=== PATIENT | female | born 1990 | race Hispanic/Latino ===

== ENCOUNTER 2021-04-20 21:03 | Emergency (ER) | payer OTHER ==
[~2021-04-20] VITALS: Ht 157.5 cm; Wt 81.6 kg
[2021-04-20 21:34] VITALS: BP 122/78
[2021-04-20 21:42] LABS: APPEARANCE,URINE Clear (CLEAR); BILIRUBIN,URINE Negative (NEGATIVE); COLOR,URINE Yellow (YELLOW); GLUCOSE, URINE (UA) Negative (NEGATIVE); KETONES,URINE Negative (NEGATIVE); LEUKOCYTE ESTERASE ,URINE Negative (NEGATIVE); NITRATE,URINE Negative (NEGATIVE); OCCULT BLOOD,URINE Negative (NEGATIVE); PH,URINE 6.5 (5.0-8.0); PROTEIN,URINE Negative (NEGATIVE)
[2021-04-20 21:43] LABS: HCG,QUAL RESULT NEGATIVE (NEGATIVE)
[2021-04-20] MEDS ORDERED: KETOROLAC 60 MG VIAL (30MG/ML) IM ONE (22:15)
[2021-04-20] MEDS ORDERED: CYCLOBENZAPRINE HCL 10 MG TABLET PO ONE (22:15)
[2021-04-20] MEDS ORDERED: NAPR-1180 PO (22:47)
[2021-04-20] MEDS ORDERED: CYCL10 PO (22:47)
[2021-04-20 22:59] VITALS: BP 116/71
== END 2021-04-20 23:07 | disposition home or self-care (01) ==
LOC: EDH 21:03
DX: S39.012A Strain of muscle, fascia and tendon of lower back, initial encounter (principal); Z79.899 Other long term (current) drug therapy; X58.XXXA Exposure to other specified factors, initial encounter; Y93.89 Activity, other specified; Y92.89 Other specified places as the place of occurrence of the external cause; Y99.8 Other external cause status
CPT/HCPCS: 72100; 81003; 81025; 96372; 99284; J1885

== ENCOUNTER 2022-06-30 17:48 | Emergency (ER) | payer MEDICAID, OTHER ==
[~2022-06-30] VITALS: Ht 157.5 cm; Wt 49.9 kg
[~2022-06-30 17:48] MED LIST: CYCL10TA16 PO; NAPR-1180 PO
[2022-06-30 18:01] VITALS: BP 125/86
[2022-06-30] MEDS ORDERED: PRED50TA2 PO (18:42)
[2022-06-30] MEDS ORDERED: DIPH25TA22 PO (18:42)
== END 2022-06-30 18:56 | disposition home or self-care (01) ==
LOC: EDH 17:48
DX: T78.49XA Other allergy, initial encounter (principal); Z79.1 Long term (current) use of non-steroidal anti-inflammatories (NSAID); Z79.52 Long term (current) use of systemic steroids; X58.XXXA Exposure to other specified factors, initial encounter

== ENCOUNTER 2023-11-27 00:21 | Emergency (ER) | payer OTHER ==
[~2023-11-27] VITALS: Ht 157.5 cm; Wt 86.2 kg
[~2023-11-27 00:21] MED LIST changes: +DIPH25TA22 PO; +PRED50TA2 PO
[2023-11-27 00:24] VITALS: RESP 20
[2023-11-27 00:54] LABS: RAPID GROUP A STREP negative (NEGATIVE)
[2023-11-27 00:58] LABS: SARS-CoV-2, RNA, NAAT NEGATIVE SARS CoV-2 (NEGATIVE)
[2023-11-27 01:03] LABS: INFLUENZA TYPE A Negative For Type A (NEGATIVE); INFLUENZA TYPE B Negative For Type B (NEGATIVE)
[2023-11-27] MEDS ORDERED: GUAI5LIQ13 PO (02:55)
[2023-11-27 03:36] VITALS: BP 133/74; PULSE 88
== END 2023-11-27 03:37 | disposition home or self-care (01) ==
LOC: EDH 00:21
DX: J06.9 Acute upper respiratory infection, unspecified (principal); Z20.822 Contact with and (suspected) exposure to COVID-19; Z79.899 Other long term (current) drug therapy; Z98.890 Other specified postprocedural states
CPT/HCPCS: 87635; 87804; 87880

== ENCOUNTER 2024-07-04 20:16 | Emergency (ER) | payer SELFPAY ==
[~2024-07-04] VITALS: Ht 157.5 cm; Wt 86.2 kg
[~2024-07-04 20:16] MED LIST changes: +GUAI5LIQ13 PO
[2024-07-04 22:46] LABS: RAPID GROUP A STREP negative (NEGATIVE)
[2024-07-04 22:51] LABS: SARS-CoV-2, RNA, NAAT NEGATIVE SARS CoV-2 (NEGATIVE)
[2024-07-04 22:56] LABS: INFLUENZA TYPE A Negative For Type A (NEGATIVE); INFLUENZA TYPE B Negative For Type B (NEGATIVE)
[2024-07-04] MEDS: 0.9%NACL 1000ML 1,000 ML IV ONE (23:06)
[2024-07-04] MEDS: acetaMINOPHEN 500 MG TABLET PO ONE (23:06)
[2024-07-04 23:35] LABS: BASOPHILS # (AUTO) 0.04 K/uL (0.00-0.20); BASOPHILS % (AUTO) 0.4 % (0.0-5.0); EOSINOPHILS # (AUTO) 0.03 K/uL (0.00-0.70); EOSINOPHILS % (AUTO) 0.3 % (0.0-8.0); HEMATOCRIT 34.6 % (36-48); IMMATURE GRANULOCYTE ABSOLUTE 0.04 K/uL (0-1); LYMPHOCYTES # (AUTO) 1.7 K/uL (1.0-4.8); LYMPHOCYTES % (AUTO) 18.3 % (21.0-51.0); MEAN CORPUSCULAR HEMOGLOBIN 25.1 pg (27.0-33.0); MEAN CORPUSCULAR HGB CONC 31.8 g/dL (32.0-36.0); MONOCYTES # (AUTO) 0.5 K/uL (0.1-1.0); MONOCYTES % (AUTO) 4.9 % (3.0-13.0); NEUTROPHILS # (AUTO) 7.2 K/uL (1.8-7.7); NEUTROPHILS % (AUTO) 75.7 % (40.0-77.0); PLATELET COUNT (AUTO) 400 K/uL (130-400); RED BLOOD CELL COUNT(AUTO) 4.38 MIL/uL (4.00-5.50); RED CELL DISTRIBUTION WIDTH 14.2 % (11.0-15.5); WHITE BLOOD COUNT (AUTO) 9.5 K/uL (4.8-10.8)
[2024-07-04 23:43] LABS: CREATININE 0.7 mg/dL (0.5-1.0); POTASSIUM 4.4 mmol/L (3.5-5.1)
[2024-07-04 23:58] LABS: APPEARANCE,URINE CLOUDY (CLEAR); BILIRUBIN,URINE NEGATIVE (NEGATIVE); COLOR,URINE COLORLESS (YELLOW); GLUCOSE, URINE (UA) NEGATIVE (NEGATIVE); KETONES,URINE NEGATIVE (NEGATIVE); LEUKOCYTE ESTERASE ,URINE 500 Leu/uL (NEGATIVE); NITRATE,URINE NEGATIVE (NEGATIVE); OCCULT BLOOD,URINE LARGE (NEGATIVE); PROTEIN,URINE 20 mg/dL (NEGATIVE); UROBILINOGEN,URINE 0.2 mg/dL (0.2-1.0)
[2024-07-05] VITALS: BP 134/78; PULSE 70; RESP 20; TEMP 98.8; O2SAT 98
[2024-07-05 00:01] LABS: BACTERIA,URINE FEW /HPF (None Seen); MUCUS,URINE RARE LPF (None Seen); SQUAMOUS EPITHELIAL CELL,UR MANY /HPF (0-2)
[2024-07-05] MEDS ORDERED: CEPH500B PO (00:09)
== END 2024-07-05 00:30 | disposition home or self-care (01) ==
LOC: EDH 20:16
DX: N39.0 Urinary tract infection, site not specified (principal); Z20.822 Contact with and (suspected) exposure to COVID-19; Z79.899 Other long term (current) drug therapy; Z98.890 Other specified postprocedural states
CPT/HCPCS: 99283; 87635; 80048; 85025; 87086; 87880; 87804 ×2; 81001; 36415; J7030

== ENCOUNTER 2025-05-17 23:57 | Emergency (ER) | payer SELFPAY ==
[~2025-05-17] VITALS: Ht 154.9 cm; Wt 2.3 kg
[~2025-05-17 23:57] MED LIST changes: +CEPH500B PO; +DICL20GE TP; -GUAI5LIQ13 PO; +GUAI5SYR10 PO
--- NOTE | 2025-05-18 00:43 | ERN ---
General Chief Complaint: Headache Stated Complaint: C/O HEADACHE, NAUSEA, WEAKNESS Time Seen by MD: 00:04 History of Present Illness Initial Comments 34-year-old female with a history of headaches associated with nausea and vomiting for the last 2-3 weeks comes in because her pain is impossible to control. She is to take Excedrin but stopped because she is planning on donating one of her kidneys to her and needs to avoid nephrotoxic medications. She states no past medical history no meds no allergies. She was planning on seeing a neurologist to help with her headaches but does not have the money to pay for the appointments. She does give a history of prodrome symptoms and so it is possible she truly has migraine headaches. Timing/Duration: 1 week, constant Allergies: Coded Allergies: No Known Drug Allergies (Unverified Allergy, Unknown, 04/20/21) Home Meds Active Scripts Diclofenac Sodium (Voltaren Arthritis Pain) 1 % Gel..gram., 4 GM TP TID for 7 Days, #1 TUBE Prov:KRIS JEONG MD 01/18/25 Cephalexin Monohydrate (Keflex) 500 Mg Cap, 1 CAP PO BID for 10 Days, #20 CAP 0 Refills Prov:KRIS JEONG MD 01/18/25 Cephalexin Monohydrate (Keflex) 500 Mg Cap, 500 MG PO BID for 7 Days, #14 CAP Prov:KRIS JEONG MD 07/05/24 Guaifenesin/Dextromethorphan (Guaifenesin-Dm 100-10 mg/5 ml) 100 Mg-10 Mg/5 Ml Liquid, 5 ML PO Q4HPRN PRN for COUGH, #100 ML Prov:SAI LLANOS MD 11/27/23 Diphenhydramine HCl (Diphenhydramine HCl) 25 Mg Tablet, 50 MG PO every 6 hours PRN for allergy symptoms for 5 Days, #30 TAB Prov:REILLY MONTENEGRO NP 06/30/22 Prednisone (Prednisone) 50 Mg Tablet, 50 MG PO DAILYBKFST for allergic reaction for 5 Days, #5 TAB Prov:REILLY MONTENEGRO NP 06/30/22 Cyclobenzaprine HCl (Flexeril) 10 Mg Tab, 10 MG PO BID, #30 TAB Prov:ROSCOE TORO 04/20/21 Naproxen (Naprosyn) 500 Mg Tablet, 500 MG PO BIDPC, #60 TAB Prov:ROSCOE TORO 04/20/21 Past Medical History Past Medical History: Anemia, Migraines Past Surgical History: Family History Family History: Negative Social History Social History: Negative Constitutional: (-) chills, (-) diaphoresis, (-) fever, (-) malaise, (-) weakness, (-) other documentation EENTM: (-) eye pain, (-) blurred vision, (-) tearing, (-) double vision, (-) ear pain, (-) ear discharge, (-) nose pain, (-) nose congestion, (-) throat pain, (-) Throat swelling, (-) mouth pain, (-) tooth pain, (-) mouth swelling, (-) other documentation Respiratory: (-) cough, (-) orthopnea, (-) short of breath, (-) stridor, (-) wheezing, (-) other documentation Cardiovascular: (-) chest pain, (-) edema, (-) palpitations, (-) syncope, (-) dyspnea on exertion, (-) other documentation Gastrointestinal/Abdominal: (+) nausea, (+) vomiting Genitourinary: (-) vaginal discharge, (-) vaginal bleeding, (-) dysuria, (-) frequency, (-) hematuria, (-) pain, (-) other documentation Musculoskeletal: (-) Neck pain, (-) back pain, (-) Flank Pain, (-) joint pain, (-) joint swelling, (-) muscle pain, (-) muscle stiffness, (-) gout, (-) other documentation Skin: (-) laceration, (-) contusion, (-) abrasion, (-) abscess, (-) rash, (-) change in color, (-) change in hair, (-) change in nails, (-) diaphoresis, (-) dryness, (-) other documentation Neuro: (+) headache Hematologic/Lymphatic: (+) anemia Physical Exam General Appearance: (+) mild distress Orientation: (+) alert, (+) oriented x 3 Head/Face Trauma: No Eye: bilateral eye normal inspection, bilateral eye PERRL, bilateral eye EOMI Ear, Nose, Throat: (+) hearing grossly normal, (+) normal ENT inspection, (+) moist mucous membraine Neck: (+) normal inspection, (+) supple, (+) full range of motion Respiratory: (+) chest non-tender, (+) lungs clear, (+) well ventilated Heart: (+) regular, (+) no gallop Vascular: (+) no edema, (+) normal peripheral pulse Gastrointestinal: (+) soft, (+) non-tender, (+) no organomegaly, (+) bowel sound present Results Laboratory and Microbiology Lab and Micro Result Laboratory Tests Test 05/18/25 00:24 White Blood Count 7.3 K/uL (4.8-10.8) Red Blood Count 4.57 MIL/uL (4.00-5.50) Hemoglobin 11.9 g/dL (12.0-16.0) L Hematocrit 36.8 % (36-48) Mean Corpuscular Volume 80.5 fL (79-99) Mean Corpuscular Hemoglobin 26.0 pg (27.0-33.0) L Mean Corpuscular Hemoglobin Concent 32.3 g/dL (32.0-36.0) Red Cell Distribution Width 14.6 % (11.0-15.5) Platelet Count 504 K/uL (130-400) H Mean Platelet Volume 11.0 fL (7.5-10.5) H Immature Granulocyte % (Auto) 0.3 % (0-1) Neutrophils (%) (Auto) 69.3 % (40.0-77.0) Lymphocytes (%) (Auto) 24.3 % (21.0-51.0) Monocytes (%) (Auto) 4.3 % (3.0-13.0) Eosinophils (%) (Auto) 1.4 % (0.0-8.0) Basophils (%) (Auto) 0.4 % (0.0-5.0) Neutrophils # (Auto) 5.1 K/uL (1.8-7.7) Lymphocytes # (Auto) 1.8 K/uL (1.0-4.8) Monocytes # (Auto) 0.3 K/uL (0.1-1.0) Eosinophils # (Auto) 0.10 K/uL (0.00-0.70) Basophils # (Auto) 0.03 K/uL (0.00-0.20) Absolute Immature Granulocyte (auto 0.02 K/uL (0-1) Nucleated Red Blood Cells 0.0 % (0.0-0.19) Sodium Level 138 mmol/L (136-145) Potassium Level 4.9 mmol/L (3.5-5.1) Chloride Level 104 mmol/L (101-111) Carbon Dioxide Level 26 mmol/L (21-32) Blood Urea Nitrogen 7 mg/dL (7-18) Creatinine 0.6 mg/dL (0.5-1.0) Glomerular Filtration Rate Calc 121 mL/min (>90) Random Glucose 94 mg/dL (70-105) Total Calcium 9.0 mg/dL (8.5-10.1) Serum Test, Qualitative NEGATIVE (NEGATIVE) MDM MDM: Differential diagnosis: Migraines, dehydration, muscle strain, tension h eadaches Rationale: Tests considered and ordered secondary to shared decision making include: Previous outside records reviewed: Old ER visits. Risk of complication and/or morbidity or mortality of patient management: None Medications-Per medication reconciliation Need for hospitalization: Patient does meet criteria for hospitalization. Need for emergency major/minor surgery: No There are no social concerns with this patient. Prescription drug management Prescriptions will include symptomatic care Patient's prior external medical records from other ER visits were reviewed by me as indicated. Prior testing and results from previous visits were reviewed. Prior tests were taken into account with medical decision making and resource utilization, independent historian/historians were used to obtain complete medical history. I independently interpreted the test that were performed, results were reviewed by me and considered findings on radiology if ordered. I will order the usual labs as well as bolused her some fluid and give her some nor flex as well as some sumatriptan. Patient was given sumatriptan as well as Flexeril neither one of those medications helped the patient's headache that much. Once she finished the L of fluids her headache went away. I will discharge her home with some sumatriptan as that should not interfere with her ability to serve as a kidney donor. ED Course Orders Procedure Category Date Status Time Cbc With Differential LAB 05/18/25 Complete 00:09 Basic Metabolic Panel LAB 05/18/25 Complete 00:09 Testing, LAB 05/18/25 Complete Serum Hcg 00:09 Lactated Ringers PHA 05/18/25 Complete 1000ml (Lactated 00:38 Sumatriptan Succinate PHA 05/18/25 Complete (Imitrex) 01:00 Orphenadrine Citrate PHA 05/18/25 Complete (Norflex) 01:00 Cyclobenzaprine Hcl PHA 05/18/25 Complete (Cyclobenzaprine Hcl 01:00 Ondansetron 4mg Inj PHA 05/18/25 Complete (Zofran 4mg Inj) 02:30 Current Medications Medications (Trade) Dose Ordered Sig/Humble Route PRN Reason Start Time Stop Time Status Last Admin Dose Admin Cyclobenzaprine HCl (Cyclobenzaprine HCl) 10 mg ONCE ONCE PO 05/18/25 01:00 05/18/25 01:01 DC 05/18/25 00:53 Lactated Ringer's (Lactated Ringers 1000ml) 1,000 ml BOLUS STAT IV 05/18/25 00:38 05/18/25 00:41 DC 05/18/25 00:51 Ondansetron HCl (zoFRAN 4MG INJ) 4 mg ONCE ONCE IVP 05/18/25 02:30 05/18/25 02:31 DC 05/18/25 02:15 Orphenadrine Citrate (Norflex) 60 mg ONCE ONCE IM 05/18/25 01:00 05/18/25 00:48 DC Sumatriptan Succinate (ImiTREX) 25 mg ONCE ONCE PO 05/18/25 01:00 05/18/25 01:01 DC 05/18/25 00:51 Vital Signs Date Time Temp Pulse Resp B/P (MAP) Pulse Ox O2 Delivery O2 Flow Rate FiO2 05/17/25 23:58 99.0 77 20 119/83 100 Room Air DX & DISP Disposition: Discharge Departure Impression: Primary Impression: Tension headache Additional Impression: Dehydration Condition: Stable Scripts Sumatriptan Succinate (Sumatriptan Succinate) 25 Mg Tablet 1 TAB PO AD, #9 TAB 0 Refills Prov: SILKE MARX MD 05/18/25 Additional Instructions: You came in with a nausea vomiting a feeling of weakness and headaches. We tried a variety of medications to help with the this a muscle relaxant and sumatriptan for migraines. Neither of these completely relieved your symptoms, but they did help. It seems the fluid bolus made the biggest difference. I think that you need to maintain good hydration to prevent future migraine attacks and tension headaches. Drink enough fluids so that your urine is clear at least once a day. Please follow-up with your primary care physician and your transplant surgeon regarding the sumatriptan another possible medications that you can take for your headaches. Your laboratory studies were normal. Referrals: SELF,REFERRAL (PCP) SILKE MARX MD May 18, 2025 00:43
[2025-05-18 00:46] LABS: IMMATURE GRANULOCYTE ABSOLUTE 0.02 K/uL (0-1); NUCLEATED RED BLOOD CELLS 0.0 % (0.0-0.19); PLATELET COUNT (AUTO) 504 K/uL (130-400); RED BLOOD CELL COUNT(AUTO) 4.57 MIL/uL (4.00-5.50); RED CELL DISTRIBUTION WIDTH 14.6 % (11.0-15.5); WHITE BLOOD COUNT (AUTO) 7.3 K/uL (4.8-10.8)
[2025-05-18] MEDS: LACTATED RINGERS 1000ML IV STA (00:51)
[2025-05-18 00:53] LABS: CREATININE 0.6 mg/dL (0.5-1.0); GLOMERULAR FILTR. RATE CALC 121.0 mL/min (>90); GLUCOSE,RANDOM 94.0 mg/dL (70-105); SODIUM SERUM 138.0 mmol/L (136-145); UREA NITROGEN, BLOOD 7.0 mg/dL (7-18)
[2025-05-18] MEDS: CYCLOBENZAPRINE HCL 10 MG TABLET PO ONE (00:53)
[2025-05-18] MEDS ORDERED: ORPHENADRINE 60MG/2ML IM ONE (01:00)
[2025-05-18] MEDS ORDERED: SUMA25TA9 PO (02:46)
[2025-05-18 02:55] VITALS: BP 122/79; PULSE 75; RESP 18; TEMP 98.6; O2SAT 99
== END 2025-05-18 02:56 | disposition home or self-care (01) ==
LOC: EDH 05-18 00:01
DX: G44.209 Tension-type headache, unspecified, not intractable (principal); E86.0 Dehydration; Z79.899 Other long term (current) drug therapy
CPT/HCPCS: 99283; 96374; 80048; 84703; 85025; 36415; J7120; J2405